=== PATIENT | female | born 1970 | race Caucasian/White ===

== ENCOUNTER 2025-09-14 17:01 | Inpatient (IN) | payer OTHER ==
[~2025-09-14] VITALS: Ht 165.1 cm; Wt 61.4 kg
[2025-09-14 17:59] LABS: PLATELET COUNT (AUTO) 473 K/uL (150-450); RED BLOOD CELL COUNT(AUTO) 4.53 MIL/uL (4.00-5.20); RED CELL DISTRIBUTION WIDTH 12.7 % (11.5-14.5); WHITE BLOOD COUNT (AUTO) 16.5 K/uL (4.5-11.0)
[2025-09-14 18:09] LABS: CALCIUM, TOTAL 11.3 mg/dL (8.8-10.5); CREATININE 2.79 mg/dL (0.60-1.30); GLOMERULAR FILTR. RATE CALC 17.0 mL/min (>60); GLUCOSE,RANDOM 154.0 mg/dL (70-110); SODIUM SERUM 145.0 mmol/L (136-145); UREA NITROGEN, BLOOD 70.0 mg/dL (7-18)
[2025-09-14 18:15] LABS: ASPARTATE AMINOTRANSFERASE 251.0 U/L (15-37); TOTAL PROTEIN, SERUM 9.5 g/dL (6.4-8.2)
[2025-09-14 18:34] LABS: APPEARANCE,URINE CLEAR (CLEAR); GLUCOSE, URINE (UA) NEGATIVE (NEGATIVE); LEUKOCYTE ESTERASE ,URINE NEGATIVE (NEGATIVE); NITRATE,URINE NEGATIVE (NEGATIVE); OCCULT BLOOD,URINE NEGATIVE (NEGATIVE); SPECIFIC GRAVITIY, URINE 1.027 (1.003-1.030)
[2025-09-14] MEDS ORDERED: 0.9% SODIUM CHLORIDE 10 ML SYRINGE IVP PRN (18:45)
[2025-09-14] MEDS: CefTRIAXone 1 GM/DEXTROSE 50 ML IV ONE (19:04)
[2025-09-14] MEDS: SODIUM CHLORIDE 0.9% 2,050 ML IV ONE (19:04)
[2025-09-14 19:06] LABS: CALCIUM, TOTAL 11.0 mg/dL (8.8-10.5); CREATININE 2.63 mg/dL (0.60-1.30); GLOMERULAR FILTR. RATE CALC 19.0 mL/min (>60); GLUCOSE,RANDOM 129.0 mg/dL (70-110); SODIUM SERUM 145.0 mmol/L (136-145); UREA NITROGEN, BLOOD 71.0 mg/dL (7-18)
[2025-09-14 19:15] LABS: LACTIC ACID 1.9 mmol/L (0.4-2.0)
[2025-09-14 19:39] LABS: COVID AG,FIA SOURCE NASAL SWAB
[2025-09-14 20:01] LABS: SARS-COV2 (COVID) ANTIGEN,FIA Negative (Negative)
[2025-09-14 23:00] VITALS: BP 121/82; PULSE 87; RESP 18; TEMP 98.7; O2SAT 100
[2025-09-15 03:42] VITALS: BP 119/71; PULSE 112; RESP 17; TEMP 98.1; O2SAT 94
[2025-09-15] MEDS ORDERED: MIRT-89 PO (03:53)
[2025-09-15] MEDS: SODIUM CHLORIDE 0.9% 1,000 ML IV SCH (04:12)
[2025-09-15] MEDS ORDERED: ERGO500054 PO (04:16)
[2025-09-15] MEDS ORDERED: AMLO-257 PO (04:16)
[2025-09-15] MEDS ORDERED: SERT-162 PO (04:16)
[2025-09-15 06:16] LABS: PLATELET COUNT (AUTO) 288 K/uL (150-450); RED BLOOD CELL COUNT(AUTO) 3.30 MIL/uL (4.00-5.20); RED CELL DISTRIBUTION WIDTH 12.5 % (11.5-14.5); WHITE BLOOD COUNT (AUTO) 9.8 K/uL (4.5-11.0)
[2025-09-15 06:50] LABS: CALCIUM, TOTAL 9.0 mg/dL (8.8-10.5); CREATININE 1.84 mg/dL (0.60-1.30); GLOMERULAR FILTR. RATE CALC 28.0 mL/min (>60); GLUCOSE,RANDOM 102.0 mg/dL (70-110); SODIUM SERUM 147.0 mmol/L (136-145); UREA NITROGEN, BLOOD 59.0 mg/dL (7-18)
[2025-09-15 07:55] VITALS: BP 107/70; PULSE 93; RESP 18; TEMP 98.1; O2SAT 97
[2025-09-15] MEDS: HEPARIN SODIUM,PORCINE 5,000 UNITS/ML VIAL SQ SCH (09:00)
[2025-09-15 11:11] VITALS: BP 108/77; PULSE 86; RESP 18; TEMP 98.4; O2SAT 97
[2025-09-15] MEDS: POTASSIUM CHLORIDE 20 MEQ ER TABLET PO ONE (12:00)
[2025-09-15] MEDS: DEXTROSE 5%-WATER 1,000 ML IV SCH (14:42)
[2025-09-15 15:07] VITALS: BP 132/90; PULSE 113; RESP 19; TEMP 98.1; O2SAT 95
[2025-09-15 15:19] LABS: CREATININE,URINE RANDOM 88.1 mg/dL (30.0-125.0)
[2025-09-15 15:32] VITALS: PULSE 120
[2025-09-15] MEDS: POTASSIUM CHL 10 MEQ/WATER 50 ML IV SCH (17:17)
[2025-09-15 20:35] VITALS: BP 143/98; PULSE 122; RESP 18; TEMP 98.1; O2SAT 95
[2025-09-15] MEDS: MIRTAZAPINE 15 MG TABLET PO SCH (21:00)
[2025-09-15] MEDS: CefTRIAXone 1 GM/DEXTROSE 50 ML IV SCH (21:35)
[2025-09-15] MEDS: LORazepam 2 MG/ML VIAL IVP ONE (21:36)
[2025-09-16] VITALS (9 sets, daily range): BP systolic 118–141; BP diastolic 74–97; PULSE 74–142; RESP 18–22; TEMP 97.9–98.4; O2SAT 97–98
[2025-09-16 06:13] LABS: PLATELET COUNT (AUTO) 240 K/uL (150-450); RED BLOOD CELL COUNT(AUTO) 3.23 MIL/uL (4.00-5.20); RED CELL DISTRIBUTION WIDTH 12.3 % (11.5-14.5); WHITE BLOOD COUNT (AUTO) 6.7 K/uL (4.5-11.0)
[2025-09-16 06:52] LABS: CALCIUM, TOTAL 9.4 mg/dL (8.8-10.5); CREATININE 1.28 mg/dL (0.60-1.30); GLOMERULAR FILTR. RATE CALC 43.0 mL/min (>60); GLUCOSE,RANDOM 101.0 mg/dL (70-110); SODIUM SERUM 141.0 mmol/L (136-145); UREA NITROGEN, BLOOD 27.0 mg/dL (7-18)
[2025-09-16] MEDS ORDERED: SODIUM CHLORIDE 0.9% 100 ML ONE (11:14)
[2025-09-16] MEDS: POTASSIUM CHL 10 MEQ/WATER 50 ML IV PRN (11:20)
[2025-09-16] MEDS: DIAZEPAM 5 MG/ML 2 ML SYRINGE IVP ONE (11:24)
[2025-09-16] MEDS: LORazepam 2 MG/ML VIAL IVP PRN (16:38)
[2025-09-16] MEDS: ZIPRASIDONE MESYLATE 20 MG/VIAL IM ONE (20:33)
[2025-09-17 04:11] VITALS: BP 114/82; PULSE 88; RESP 19; TEMP 98.4; O2SAT 98
[2025-09-17 06:01] LABS: PLATELET COUNT (AUTO) 237 K/uL (150-450); RED BLOOD CELL COUNT(AUTO) 3.56 MIL/uL (4.00-5.20); RED CELL DISTRIBUTION WIDTH 12.4 % (11.5-14.5); WHITE BLOOD COUNT (AUTO) 6.9 K/uL (4.5-11.0)
[2025-09-17 06:10] LABS: CALCIUM, TOTAL 9.7 mg/dL (8.8-10.5); CREATININE 1.12 mg/dL (0.60-1.30); GLOMERULAR FILTR. RATE CALC 50.0 mL/min (>60); GLUCOSE,RANDOM 102.0 mg/dL (70-110); SODIUM SERUM 140.0 mmol/L (136-145); UREA NITROGEN, BLOOD 14.0 mg/dL (7-18)
[2025-09-17 08:00] VITALS: BP 109/62; PULSE 60; RESP 18; TEMP 98.4; O2SAT 99
[2025-09-17] MEDS: POTASSIUM CHLORIDE 20 MEQ ER TABLET PO PRN (11:15)
[2025-09-17 11:52] VITALS: BP 111/66; PULSE 74; RESP 16; TEMP 98.1; O2SAT 98
[2025-09-17 15:42] VITALS: BP 120/95; PULSE 116; RESP 16; TEMP 97.7; O2SAT 97
[2025-09-17 20:22] VITALS: BP 154/95; PULSE 131; RESP 17; TEMP 98.6; O2SAT 96
[2025-09-17 22:57] VITALS: BP 143/95; PULSE 118; RESP 18; TEMP 97.5; O2SAT 95
[2025-09-18] VITALS (7 sets, daily range): BP systolic 135–148; BP diastolic 90–100; PULSE 103–112; RESP 16–18; TEMP 97.5–99.7; O2SAT 95–98
[2025-09-18 09:08] LABS: PLATELET COUNT (AUTO) 230 K/uL (150-450); RED BLOOD CELL COUNT(AUTO) 3.77 MIL/uL (4.00-5.20); RED CELL DISTRIBUTION WIDTH 12.3 % (11.5-14.5); WHITE BLOOD COUNT (AUTO) 7.6 K/uL (4.5-11.0)
[2025-09-18 09:26] LABS: CALCIUM, TOTAL 9.5 mg/dL (8.8-10.5); CREATININE 1.09 mg/dL (0.60-1.30); GLOMERULAR FILTR. RATE CALC 52.0 mL/min (>60); GLUCOSE,RANDOM 129.0 mg/dL (70-110); SODIUM SERUM 138.0 mmol/L (136-145); UREA NITROGEN, BLOOD 10.0 mg/dL (7-18)
[2025-09-18] MEDS ORDERED: IOHEXOL 350 MG/ML 100 ML VIAL ONE (18:26)
[2025-09-18] MEDS: CefTRIAXone 1 GM/DEXTROSE 50 ML IV SCH (22:14)
[2025-09-19 03:04] VITALS: BP 118/84; PULSE 92; RESP 18; TEMP 99; O2SAT 97
[2025-09-19] MEDS: ACETAMINOPHEN 325 MG TABLET PO PRN (03:33)
[2025-09-19 08:21] VITALS: BP 122/88; PULSE 101; RESP 18; TEMP 98.9; O2SAT 98
[2025-09-19] MEDS ORDERED: SODIUM CHLORIDE 0.9% 100 ML ONE (10:33)
[2025-09-19] MEDS ORDERED: 0.9% SODIUM CHLORIDE 10 ML SYRINGE IVP ONE (10:33)
[2025-09-19] MEDS ORDERED: IOHEXOL 350 MG/ML 100 ML VIAL ONE (10:33)
[2025-09-19] MEDS: *CLINICAL-TOTAL PARENTERAL NUTRITION DOSING CLINICAL ONE (11:47)
[2025-09-19] MEDS ORDERED: HEPARIN SODIUM,PORCINE 5,000 UNITS/ML VIAL IVP PRN ×2 (12:00)
[2025-09-19 12:26] LABS: PLATELET COUNT (AUTO) 194 K/uL (150-450); RED BLOOD CELL COUNT(AUTO) 3.64 MIL/uL (4.00-5.20); RED CELL DISTRIBUTION WIDTH 12.3 % (11.5-14.5); WHITE BLOOD COUNT (AUTO) 7.8 K/uL (4.5-11.0)
[2025-09-19] MEDS: HEPARIN SODIUM 25000 UNITS/D5W 250 ML IV PRN (12:29)
[2025-09-19] MEDS ORDERED: SODIUM CHLORIDE 0.9% 500 ML IV ONE (12:30)
[2025-09-19 16:23] VITALS: BP 138/82; PULSE 98; RESP 18; TEMP 98.8; O2SAT 99
[2025-09-19 19:50] VITALS: BP 110/72; PULSE 84; RESP 18; TEMP 98.6; O2SAT 97
[2025-09-19] MEDS: MIRTAZAPINE 15 MG TABLET PO SCH (20:00)
[2025-09-19] MEDS ORDERED: DEXTROSE 50%-WATER 25 GM/50 ML SYRINGE IVP PRN (22:00)
[2025-09-20] MEDS: INSULIN REGULAR, HUMAN 100 UNITS/ML SQ PRN (01:40)
[2025-09-20 06:13] VITALS: BP 106/67; PULSE 72; RESP 18; TEMP 98.8; O2SAT 97
[2025-09-20 06:44] LABS: PLATELET COUNT (AUTO) 206 K/uL (150-450); RED BLOOD CELL COUNT(AUTO) 3.64 MIL/uL (4.00-5.20); RED CELL DISTRIBUTION WIDTH 12.5 % (11.5-14.5); WHITE BLOOD COUNT (AUTO) 6.7 K/uL (4.5-11.0)
[2025-09-20 07:00] LABS: ASPARTATE AMINOTRANSFERASE 25.0 U/L (15-37); CALCIUM, TOTAL 9.7 mg/dL (8.8-10.5); CREATININE 1.4 mg/dL (0.60-1.30); GLOMERULAR FILTR. RATE CALC 39.0 mL/min (>60); GLUCOSE,RANDOM 106.0 mg/dL (70-110); PHOSPHORUS 4.3 mg/dL (2.5-4.9); SODIUM SERUM 142.0 mmol/L (136-145); TOTAL PROTEIN, SERUM 6.9 g/dL (6.4-8.2); UREA NITROGEN, BLOOD 19.0 mg/dL (7-18)
[2025-09-20 08:51] VITALS: BP 100/65; PULSE 77; RESP 18; TEMP 97.3; O2SAT 95
[2025-09-20] MEDS: SODIUM CHLORIDE 0.9% 500 ML IV ONE (09:25)
[2025-09-20 11:46] LABS: GLUCOSE,POINT OF CARE 116 MG/DL (70-110)
[2025-09-20 11:46] LABS: GLUCOSE,POINT OF CARE 91 MG/DL (70-110)
[2025-09-20 11:46] LABS: GLUCOSE,POINT OF CARE 135 MG/DL (70-110)
[2025-09-20 12:01] LABS: GLUCOMETER DEV NAME(LOC) 6N.2C; GLUCOSE,POINT OF CARE 101 MG/DL (70-110)
[2025-09-20 15:20] VITALS: BP 103/62; PULSE 77; RESP 18; TEMP 97.9; O2SAT 97
[2025-09-20 17:15] LABS: GLUCOMETER DEV NAME(LOC) 6N.2C; GLUCOSE,POINT OF CARE 119 MG/DL (70-110)
[2025-09-20] MEDS: APIXABAN 5 MG TABLET PO SCH (20:18)
[2025-09-20 20:44] VITALS: BP 138/90; PULSE 87; RESP 17; TEMP 98.4; O2SAT 97
[2025-09-20 20:55] LABS: GLUCOMETER DEV NAME(LOC) 6N.2C; GLUCOSE,POINT OF CARE 114 MG/DL (70-110)
[2025-09-21 01:16] LABS: GLUCOMETER DEV NAME(LOC) 6N.2C; GLUCOSE,POINT OF CARE 119 MG/DL (70-110)
[2025-09-21 05:11] LABS: GLUCOMETER DEV NAME(LOC) 6N.2C; GLUCOSE,POINT OF CARE 130 MG/DL (70-110)
[2025-09-21 05:26] VITALS: BP 122/79; PULSE 94; RESP 18; TEMP 98.1; O2SAT 97
[2025-09-21 06:08] LABS: CALCIUM, TOTAL 10.0 mg/dL (8.8-10.5); CREATININE 1.22 mg/dL (0.60-1.30); GLOMERULAR FILTR. RATE CALC 45.0 mL/min (>60); GLUCOSE,RANDOM 119.0 mg/dL (70-110); SODIUM SERUM 142.0 mmol/L (136-145); UREA NITROGEN, BLOOD 28.0 mg/dL (7-18)
[2025-09-21 06:14] LABS: CHOL/HDL RATIO 3.4 (3.9-5.7); LDL CHOL (CALC.) 68.0 mg/dL (0-130); PHOSPHORUS 3.2 mg/dL (2.5-4.9)
[2025-09-21 08:52] VITALS: BP 134/83; PULSE 95; RESP 18; TEMP 97.5; O2SAT 98
[2025-09-21 10:41] LABS: GLUCOMETER DEV NAME(LOC) 6N.2C; GLUCOSE,POINT OF CARE 138 MG/DL (70-110)
[2025-09-21 11:45] LABS: GLUCOMETER DEV NAME(LOC) 6N.2C; GLUCOSE,POINT OF CARE 125 MG/DL (70-110)
[2025-09-21 12:00] VITALS: BP 94/68; PULSE 88; RESP 16; O2SAT 99
[2025-09-21 16:17] VITALS: BP 122/80; PULSE 89; RESP 18; TEMP 97.9; O2SAT 98
[2025-09-21 17:26] LABS: GLUCOSE,POINT OF CARE 118 MG/DL (70-110)
[2025-09-21 20:06] VITALS: BP 108/77; PULSE 89; RESP 18; TEMP 98.2; O2SAT 96
[2025-09-22 00:55] LABS: GLUCOMETER DEV NAME(LOC) 6N.2C; GLUCOSE,POINT OF CARE 125 MG/DL (70-110)
[2025-09-22 04:21] VITALS: BP 111/76; PULSE 83; RESP 18; TEMP 97.9; O2SAT 97
[2025-09-22 06:57] LABS: CALCIUM, TOTAL 9.7 mg/dL (8.8-10.5); CREATININE 1.25 mg/dL (0.60-1.30); GLOMERULAR FILTR. RATE CALC 44.0 mL/min (>60); GLUCOSE,RANDOM 123.0 mg/dL (70-110); SODIUM SERUM 140.0 mmol/L (136-145); UREA NITROGEN, BLOOD 34.0 mg/dL (7-18)
[2025-09-22 08:12] LABS: PHOSPHORUS 3.5 mg/dL (2.5-4.9)
[2025-09-22 08:25] VITALS: BP 113/78; PULSE 82; RESP 18; TEMP 97.9; O2SAT 98
[2025-09-22 11:15] LABS: GLUCOMETER DEV NAME(LOC) 6N.2C; GLUCOSE,POINT OF CARE 130 MG/DL (70-110)
[2025-09-22 11:45] VITALS: BP 116/70; RESP 16; O2SAT 99
[2025-09-22 11:50] LABS: GLUCOMETER DEV NAME(LOC) 6N.2C; GLUCOSE,POINT OF CARE 135 MG/DL (70-110)
[2025-09-22 15:26] VITALS: BP 133/83; PULSE 89; RESP 18; TEMP 98.1; O2SAT 99
[2025-09-22 17:25] LABS: GLUCOMETER DEV NAME(LOC) 6N.2C; GLUCOSE,POINT OF CARE 110 MG/DL (70-110)
[2025-09-22 19:50] VITALS: BP 106/69; PULSE 81; RESP 18; TEMP 97.9; O2SAT 97
[2025-09-22 20:31] VITALS: BP 93/67; PULSE 82; RESP 17; TEMP 98.4; O2SAT 100
[2025-09-22] MEDS: TPN IV SCH (22:14)
[2025-09-22] MEDS: SODIUM CHLORIDE IV SCH (22:14)
[2025-09-22] MEDS: [UNRECOGNIZED DRUG - OTHER] IV SCH (22:14)
[2025-09-22] MEDS: SODIUM PHOS M BASIC D BASIC IV SCH (22:14)
[2025-09-23 05:03] VITALS: BP 107/71; PULSE 77; RESP 18; TEMP 97.7; O2SAT 99
[2025-09-23 06:09] LABS: CALCIUM, TOTAL 10.1 mg/dL (8.8-10.5); CREATININE 1.28 mg/dL (0.60-1.30); GLOMERULAR FILTR. RATE CALC 43.0 mL/min (>60); GLUCOSE,RANDOM 117.0 mg/dL (70-110); SODIUM SERUM 139.0 mmol/L (136-145); UREA NITROGEN, BLOOD 40.0 mg/dL (7-18)
[2025-09-23 06:28] LABS: PHOSPHORUS 4.1 mg/dL (2.5-4.9)
[2025-09-23 08:00] VITALS: BP 104/74; PULSE 81; RESP 20; TEMP 97.5; O2SAT 98
[2025-09-23] MEDS: FAT EMULSION 20% 100 ML IV SCH (08:38)
[2025-09-23 15:51] LABS: GLUCOSE,POINT OF CARE 121 MG/DL (70-110)
[2025-09-23 15:51] LABS: GLUCOSE,POINT OF CARE 148 MG/DL (70-110)
[2025-09-23 15:51] LABS: GLUCOMETER DEV NAME(LOC) 6N.2C; GLUCOSE,POINT OF CARE 133 MG/DL (70-110)
[2025-09-23 16:00] VITALS: BP 116/71; PULSE 85; RESP 19; TEMP 98.2; O2SAT 99
[2025-09-23 20:00] VITALS: BP 121/82; PULSE 110; RESP 18; TEMP 97.9; O2SAT 97
[2025-09-23 21:00] VITALS: PULSE 90
[2025-09-23 21:36] LABS: GLUCOSE,POINT OF CARE 103 MG/DL (70-110)
[2025-09-23] MEDS: SODIUM CHLORIDE IV SCH (23:19)
[2025-09-23] MEDS: [UNRECOGNIZED DRUG - OTHER] IV SCH (23:19)
[2025-09-23] MEDS: SODIUM PHOS M BASIC D BASIC IV SCH (23:19)
[2025-09-23] MEDS: TPN IV SCH (23:19)
[2025-09-24 04:00] VITALS: BP 107/74; PULSE 111; RESP 18; TEMP 98.2; O2SAT 98
[2025-09-24 07:25] VITALS: BP 112/69; PULSE 97; RESP 20; TEMP 98.1; O2SAT 97
[2025-09-24 14:41] LABS: GLUCOSE,POINT OF CARE 137 MG/DL (70-110)
[2025-09-24 15:33] VITALS: BP 120/80; PULSE 101; RESP 20; TEMP 98.2; O2SAT 98
[2025-09-24 18:11] LABS: GLUCOMETER DEV NAME(LOC) 6N.2C; GLUCOSE,POINT OF CARE 128 MG/DL (70-110)
[2025-09-24] MEDS: DEXTROSE 10%-WATER 1,000 ML IV SCH (19:02)
[2025-09-24] MEDS: SODIUM PHOS M BASIC D BASIC IV SCH (22:19)
[2025-09-24] MEDS: [UNRECOGNIZED DRUG - OTHER] IV SCH (22:19)
[2025-09-24] MEDS: TPN IV SCH (22:19)
[2025-09-24] MEDS: SODIUM CHLORIDE IV SCH (22:19)
[2025-09-24 22:20] VITALS: BP 96/65; PULSE 101; RESP 20; TEMP 99; O2SAT 98
[2025-09-24 22:20] LABS: PLATELET COUNT (AUTO) 163 K/uL (150-450); RED BLOOD CELL COUNT(AUTO) 3.52 MIL/uL (4.00-5.20); RED CELL DISTRIBUTION WIDTH 13.0 % (11.5-14.5); WHITE BLOOD COUNT (AUTO) 10.7 K/uL (4.5-11.0)
[2025-09-24 22:30] LABS: CALCIUM, TOTAL 9.7 mg/dL (8.8-10.5); CREATININE 1.37 mg/dL (0.60-1.30); GLOMERULAR FILTR. RATE CALC 40.0 mL/min (>60); GLUCOSE,RANDOM 114.0 mg/dL (70-110); SODIUM SERUM 139.0 mmol/L (136-145); UREA NITROGEN, BLOOD 30.0 mg/dL (7-18)
[2025-09-24 22:32] LABS: PHOSPHORUS 3.0 mg/dL (2.5-4.9)
[2025-09-24 22:40] LABS: BAND NEUTROPHILS % (MANUAL) 10 % (0-5); LYMPHOCYTES % (MANUAL) 8 % (22-44); MONOCYTES % (MANUAL) 9 % (2-9); SEGMENTED NEUTROPHILS % 73 % (40-70)
[2025-09-25 04:29] VITALS: BP 100/61; PULSE 85; RESP 19; TEMP 97.9; O2SAT 97
[2025-09-25 07:00] LABS: GLUCOSE,POINT OF CARE 118 MG/DL (70-110)
[2025-09-25 08:27] VITALS: BP 100/58; PULSE 92; RESP 20; TEMP 98.1; O2SAT 98
[2025-09-25 12:15] LABS: GLUCOSE,POINT OF CARE 150 MG/DL (70-110)
[2025-09-25 15:05] LABS: CALCIUM, TOTAL 9.6 mg/dL (8.8-10.5); CREATININE 1.26 mg/dL (0.60-1.30); GLOMERULAR FILTR. RATE CALC 44.0 mL/min (>60); GLUCOSE,RANDOM 117.0 mg/dL (70-110); SODIUM SERUM 138.0 mmol/L (136-145); UREA NITROGEN, BLOOD 33.0 mg/dL (7-18)
[2025-09-25 15:09] LABS: PHOSPHORUS 3.3 mg/dL (2.5-4.9)
[2025-09-25 15:17] VITALS: BP 114/79; PULSE 103; RESP 20; TEMP 98.2; O2SAT 98
[2025-09-25 20:43] VITALS: BP 128/87; PULSE 103; RESP 19; TEMP 98.1; O2SAT 99
[2025-09-25] MEDS: TPN SOLUTION 1 EA, SODIUM CHLORIDE 70 MEQ, SODIUM PHOS,M-BASIC-D-BASIC 30 MEQ, POTASSIU... IV SCH (22:09)
[2025-09-26 07:00] LABS: GLUCOMETER DEV NAME(LOC) 6N.2C; GLUCOSE,POINT OF CARE 134 MG/DL (70-110)
[2025-09-26 07:00] LABS: GLUCOMETER DEV NAME(LOC) 6N.2C; GLUCOSE,POINT OF CARE 127 MG/DL (70-110)
[2025-09-26 07:30] LABS: CALCIUM, TOTAL 9.4 mg/dL (8.8-10.5); CREATININE 1.23 mg/dL (0.60-1.30); GLOMERULAR FILTR. RATE CALC 45.0 mL/min (>60); GLUCOSE,RANDOM 126.0 mg/dL (70-110); SODIUM SERUM 140.0 mmol/L (136-145); UREA NITROGEN, BLOOD 37.0 mg/dL (7-18)
[2025-09-26 07:33] LABS: PHOSPHORUS 4.2 mg/dL (2.5-4.9)
[2025-09-26 08:12] VITALS: BP 107/78; PULSE 100; RESP 18; TEMP 97.9; O2SAT 99
[2025-09-26 12:01] LABS: GLUCOMETER DEV NAME(LOC) 6N.2C; GLUCOSE,POINT OF CARE 120 MG/DL (70-110)
[2025-09-26 12:12] VITALS: BP 101/62; PULSE 80; RESP 18; TEMP 98.1; O2SAT 98
[2025-09-26 16:00] VITALS: BP 101/62; PULSE 79; RESP 18; TEMP 98.1; O2SAT 98
[2025-09-26] MEDS: LORazepam 2 MG/ML VIAL IVP PRN (18:14)
[2025-09-26 20:00] VITALS: BP 104/73; PULSE 88; RESP 18; TEMP 98.1; O2SAT 100
[2025-09-26 21:30] LABS: GLUCOMETER DEV NAME(LOC) 6N.2C; GLUCOSE,POINT OF CARE 109 MG/DL (70-110)
[2025-09-27 05:30] VITALS: BP 116/71; PULSE 85; RESP 18; TEMP 98.1; O2SAT 98
[2025-09-27 07:00] LABS: GLUCOSE,POINT OF CARE 115 MG/DL (70-110)
[2025-09-27 07:29] VITALS: BP 93/60; PULSE 78; RESP 20; TEMP 98.6; O2SAT 99
[2025-09-27 15:46] VITALS: BP 97/52; PULSE 94; RESP 20; TEMP 97.9; O2SAT 98
[2025-09-27 19:30] VITALS: BP 117/65; PULSE 93; RESP 18; TEMP 98.6; O2SAT 98
[2025-09-27 19:36] LABS: GLUCOSE,POINT OF CARE 121 MG/DL (70-110)
[2025-09-27 19:36] LABS: GLUCOMETER DEV NAME(LOC) 6N.2C; GLUCOSE,POINT OF CARE 157 MG/DL (70-110)
[2025-09-27] MEDS: MEGESTROL ACETATE 40 MG TABLET PO SCH (22:09)
[2025-09-27] MEDS: APIXABAN 5 MG TABLET PO SCH (22:10)
[2025-09-28 05:45] VITALS: BP 121/79; PULSE 95; RESP 18; TEMP 97.9; O2SAT 96
[2025-09-28 06:11] LABS: GLUCOSE,POINT OF CARE 102 MG/DL (70-110)
[2025-09-28 07:41] VITALS: BP 103/74; PULSE 86; RESP 18; TEMP 97.3; O2SAT 96
[2025-09-28 07:50] LABS: PLATELET COUNT (AUTO) 184 K/uL (150-450); RED BLOOD CELL COUNT(AUTO) 3.25 MIL/uL (4.00-5.20); RED CELL DISTRIBUTION WIDTH 13.0 % (11.5-14.5); WHITE BLOOD COUNT (AUTO) 8.2 K/uL (4.5-11.0)
[2025-09-28 08:07] LABS: CALCIUM, TOTAL 9.3 mg/dL (8.8-10.5); CREATININE 1.1 mg/dL (0.60-1.30); GLOMERULAR FILTR. RATE CALC 51.0 mL/min (>60); GLUCOSE,RANDOM 126.0 mg/dL (70-110); SODIUM SERUM 143.0 mmol/L (136-145); UREA NITROGEN, BLOOD 32.0 mg/dL (7-18)
[2025-09-28 08:14] LABS: PHOSPHORUS 3.2 mg/dL (2.5-4.9)
[2025-09-28 15:19] VITALS: BP 115/62; PULSE 97; RESP 18; TEMP 98.6; O2SAT 97
[2025-09-28 20:00] VITALS: BP 120/70; PULSE 117; RESP 20; TEMP 97.7; O2SAT 98
[2025-09-28 20:15] LABS: GLUCOSE,POINT OF CARE 123 MG/DL (70-110)
[2025-09-28 21:11] LABS: GLUCOMETER DEV NAME(LOC) 6N.2C; GLUCOSE,POINT OF CARE 93 MG/DL (70-110)
[2025-09-28 21:11] LABS: GLUCOMETER DEV NAME(LOC) 6N.2C; GLUCOSE,POINT OF CARE 139 MG/DL (70-110)
[2025-09-28 21:15] LABS: GLUCOMETER DEV NAME(LOC) 6N.2C; GLUCOSE,POINT OF CARE 119 MG/DL (70-110)
[2025-09-29 04:00] VITALS: BP 111/79; PULSE 105; RESP 20; TEMP 97.9; O2SAT 96
[2025-09-29 06:45] LABS: GLUCOMETER DEV NAME(LOC) 6N.2C; GLUCOSE,POINT OF CARE 121 MG/DL (70-110)
[2025-09-29 06:45] LABS: GLUCOMETER DEV NAME(LOC) 6N.2C; GLUCOSE,POINT OF CARE 119 MG/DL (70-110)
[2025-09-29 07:19] VITALS: BP 105/65; PULSE 77; RESP 18; TEMP 98.2; O2SAT 96
[2025-09-29 08:19] LABS: CALCIUM, TOTAL 9.8 mg/dL (8.8-10.5); CREATININE 1.05 mg/dL (0.60-1.30); GLOMERULAR FILTR. RATE CALC 54.0 mL/min (>60); GLUCOSE,RANDOM 97.0 mg/dL (70-110); SODIUM SERUM 141.0 mmol/L (136-145); UREA NITROGEN, BLOOD 31.0 mg/dL (7-18)
[2025-09-29 08:32] LABS: PHOSPHORUS 3.6 mg/dL (2.5-4.9)
[2025-09-29 19:31] VITALS: BP 107/67; PULSE 108; RESP 20; TEMP 97.7; O2SAT 96
[2025-09-29] MEDS: ETHYL ALCOHOL 62% ANTISEPTIC NASAL SANITIZER 0.6 ML AMPUL NASAL SCH (20:11)
[2025-09-29] MEDS: CHLORHEXIDINE GLUCONATE 2% TOWELETTE [2'S/6'S] TP SCH (22:10)
[2025-09-30 00:36] LABS: GLUCOSE,POINT OF CARE 140 MG/DL (70-110)
[2025-09-30 00:36] LABS: GLUCOSE,POINT OF CARE 86 MG/DL (70-110)
[2025-09-30 00:36] LABS: GLUCOSE,POINT OF CARE 100 MG/DL (70-110)
[2025-09-30 04:00] VITALS: BP 103/67; PULSE 101; RESP 18; TEMP 97.9; O2SAT 98
[2025-09-30 08:27] VITALS: BP 112/69; PULSE 104; RESP 19; TEMP 97.8; O2SAT 99
[2025-09-30 08:30] LABS: GLUCOSE,POINT OF CARE 94 MG/DL (70-110)
[2025-09-30 12:25] LABS: GLUCOMETER DEV NAME(LOC) 6N.2C; GLUCOSE,POINT OF CARE 148 MG/DL (70-110)
[2025-09-30 13:19] VITALS: BP 104/63; PULSE 98; RESP 19; TEMP 97.3; O2SAT 98
[2025-09-30 17:31] LABS: GLUCOSE,POINT OF CARE 104 MG/DL (70-110)
[2025-09-30 19:28] VITALS: BP 103/60; PULSE 80; RESP 18; TEMP 98.2; O2SAT 97
[2025-09-30 20:46] LABS: GLUCOSE,POINT OF CARE 133 MG/DL (70-110)
[2025-10-01 04:30] VITALS: BP 100/64; PULSE 98; RESP 18; TEMP 98.2; O2SAT 98
[2025-10-01 07:44] VITALS: BP 95/62; PULSE 107; RESP 18; TEMP 98.2; O2SAT 100
[2025-10-01 07:45] LABS: GLUCOSE,POINT OF CARE 137 MG/DL (70-110)
[2025-10-01 12:20] LABS: GLUCOSE,POINT OF CARE 136 MG/DL (70-110)
[2025-10-01 16:17] VITALS: BP 104/64; PULSE 91; RESP 18; TEMP 97.9; O2SAT 100
[2025-10-01 17:41] LABS: GLUCOMETER DEV NAME(LOC) 6N.2C; GLUCOSE,POINT OF CARE 90 MG/DL (70-110)
[2025-10-01 20:53] VITALS: BP 96/54; PULSE 96; RESP 17; TEMP 98.6; O2SAT 99
[2025-10-02 04:47] VITALS: BP 117/87; PULSE 76; RESP 18; TEMP 97.7; O2SAT 94
[2025-10-02 06:46] LABS: GLUCOMETER DEV NAME(LOC) 6N.2C; GLUCOSE,POINT OF CARE 140 MG/DL (70-110)
[2025-10-02 07:37] VITALS: BP 91/61; PULSE 112; RESP 18; TEMP 98; O2SAT 97
[2025-10-02 09:00] VITALS: BP 107/65; RESP 18; O2SAT 97
[2025-10-02 12:00] VITALS: BP 100/65; RESP 18; O2SAT 97
[2025-10-02 12:41] LABS: GLUCOSE,POINT OF CARE 130 MG/DL (70-110)
[2025-10-02 15:12] VITALS: BP 111/62; PULSE 121; RESP 18; O2SAT 97
[2025-10-02 19:48] VITALS: BP 105/61; PULSE 90; RESP 18; TEMP 98.1; O2SAT 97
[2025-10-03 01:35] LABS: GLUCOMETER DEV NAME(LOC) 6N.2C; GLUCOSE,POINT OF CARE 107 MG/DL (70-110)
[2025-10-03 01:35] LABS: GLUCOMETER DEV NAME(LOC) 6N.2C; GLUCOSE,POINT OF CARE 163 MG/DL (70-110)
[2025-10-03 04:53] VITALS: BP 146/89; PULSE 92; RESP 18; TEMP 97.9; O2SAT 97
[2025-10-03 07:45] LABS: GLUCOMETER DEV NAME(LOC) 6N.2C; GLUCOSE,POINT OF CARE 113 MG/DL (70-110)
[2025-10-03 07:48] VITALS: BP 147/88; PULSE 131; RESP 20; TEMP 98.2; O2SAT 97
[2025-10-03 12:00] VITALS: BP 93/53; RESP 18; O2SAT 97
[2025-10-03 13:51] LABS: GLUCOMETER DEV NAME(LOC) 6N.2C; GLUCOSE,POINT OF CARE 113 MG/DL (70-110)
[2025-10-03 15:38] VITALS: BP 99/64; PULSE 120; RESP 20; TEMP 97.5; O2SAT 96
[2025-10-03] MEDS: SENNOSIDES 8.8 MG/5 ML SYRUP UDCUP PO ONE (17:41)
[2025-10-03 20:01] VITALS: BP 106/55; PULSE 114; RESP 17; TEMP 99; O2SAT 95
[2025-10-03 23:01] LABS: GLUCOMETER DEV NAME(LOC) 6N.2C; GLUCOSE,POINT OF CARE 142 MG/DL (70-110)
[2025-10-04 04:54] VITALS: BP 97/69; PULSE 108; RESP 18; TEMP 97.7; O2SAT 97
[2025-10-04 06:11] LABS: GLUCOSE,POINT OF CARE 104 MG/DL (70-110)
[2025-10-04 07:55] VITALS: BP 90/55; PULSE 104; RESP 18; TEMP 97.9; O2SAT 99
[2025-10-04] MEDS: POLYETHYLENE GLYCOL 3350 17 GM PACKET PO SCH (09:13)
[2025-10-04 09:39] VITALS: BP 95/49; PULSE 97; RESP 18; O2SAT 99
[2025-10-04 12:46] VITALS: BP 95/69; PULSE 100
[2025-10-04 13:25] LABS: GLUCOSE,POINT OF CARE 109 MG/DL (70-110)
[2025-10-04] MEDS: RINGERS SOLUTION,LACTATED 1,000 ML IV ONE (15:51)
[2025-10-04 17:36] VITALS: BP 92/62; PULSE 102
[2025-10-04 19:39] VITALS: BP 101/63; PULSE 110; RESP 18; TEMP 98.4; O2SAT 97
[2025-10-04 22:06] LABS: GLUCOSE,POINT OF CARE 198 MG/DL (70-110)
[2025-10-04 22:06] LABS: GLUCOSE,POINT OF CARE 215 MG/DL (70-110)
[2025-10-05 05:35] VITALS: BP 90/55; PULSE 82; RESP 18; TEMP 99; O2SAT 97
[2025-10-05 07:11] LABS: GLUCOSE,POINT OF CARE 109 MG/DL (70-110)
[2025-10-05 07:35] LABS: PLATELET COUNT (AUTO) 214 K/uL (150-450); RED BLOOD CELL COUNT(AUTO) 2.74 MIL/uL (4.00-5.20); RED CELL DISTRIBUTION WIDTH 13.7 % (11.5-14.5); WHITE BLOOD COUNT (AUTO) 10.8 K/uL (4.5-11.0)
[2025-10-05 07:46] LABS: CALCIUM, TOTAL 9.3 mg/dL (8.8-10.5); CREATININE 1.54 mg/dL (0.60-1.30); GLOMERULAR FILTR. RATE CALC 35.0 mL/min (>60); GLUCOSE,RANDOM 100.0 mg/dL (70-110); SODIUM SERUM 141.0 mmol/L (136-145); UREA NITROGEN, BLOOD 33.0 mg/dL (7-18)
[2025-10-05 08:32] VITALS: BP 96/51; PULSE 108; RESP 20; TEMP 99.3; O2SAT 97
[2025-10-05 14:21] LABS: GLUCOSE,POINT OF CARE 99 MG/DL (70-110)
[2025-10-05 15:34] VITALS: BP 109/74; PULSE 103; RESP 20; TEMP 98.6; O2SAT 96
[2025-10-05 19:45] VITALS: BP 124/75; PULSE 105; RESP 18; TEMP 98.2; O2SAT 97
[2025-10-05 19:50] LABS: GLUCOMETER DEV NAME(LOC) 6N.2C; GLUCOSE,POINT OF CARE 119 MG/DL (70-110)
[2025-10-06 00:26] LABS: GLUCOMETER DEV NAME(LOC) 6N.2C; GLUCOSE,POINT OF CARE 95 MG/DL (70-110)
[2025-10-06 04:30] VITALS: BP 108/72; PULSE 104; RESP 18; TEMP 98.1; O2SAT 96
[2025-10-06] MEDS: DOCUSATE SODIUM 100 MG/10 ML LIQUID UDCUP PO PRN (05:59)
[2025-10-06 06:55] LABS: GLUCOMETER DEV NAME(LOC) 6N.2C; GLUCOSE,POINT OF CARE 111 MG/DL (70-110)
[2025-10-06 08:00] VITALS: BP 115/75; PULSE 107; RESP 19; TEMP 98.1; O2SAT 97
[2025-10-06] MEDS ORDERED: DEXTROSE 5%-0.45% SODIUM CHL 1,000 ML IV SCH (10:00)
[2025-10-06 10:59] LABS: COVID AG,FIA SOURCE NASAL SWAB
[2025-10-06 11:26] LABS: SARS-COV2 (COVID) ANTIGEN,FIA Negative (Negative)
[2025-10-06] MEDS ORDERED: APIX5TAB PO (12:25)
[2025-10-06] MEDS ORDERED: LORA0.5T20 PO (12:26)
[2025-10-06] MEDS ORDERED: MEGE40TA33 PO (12:27)
[2025-10-06] MEDS ORDERED: OLAN5TAB52 PO (12:28)
[2025-10-06] MEDS ORDERED: ACET-2247 PO (12:28)
[2025-10-06] MEDS ORDERED: DOCU50LI40 PO (12:29)
[2025-10-06] MEDS ORDERED: HALO5TAB23 PO (12:30)
[2025-10-06] MEDS ORDERED: POLY17PO47 PO (12:31)
[2025-10-06] MEDS ORDERED: CARV-165 PO (12:31)
[2025-10-06 17:25] LABS: GLUCOSE,POINT OF CARE 117 MG/DL (70-110)
== END 2025-10-06 14:00 | DRG 469 ==
LOC: EMS 17:01 → EDH 22:25 → 5N 22:45 → 6S 09-18 16:49
PROVIDERS: ADMIT Internal Medicine; ATTEND Internal Medicine
PROC: 05HC33Z Insertion of Infusion Device into Left Basilic Vein, Percutaneous Approach (ICD-10-PCS; principal; 2025-09-19)
PROC: B54NZZA Ultrasonography of Left Upper Extremity Veins, Guidance (ICD-10-PCS; 2025-09-19)
DX: N17.0 Acute kidney failure with tubular necrosis (principal); I26.99 Other pulmonary embolism without acute cor pulmonale; F06.1 Catatonic disorder due to known physiological condition; R62.7 Adult failure to thrive; E43 Unspecified severe protein-calorie malnutrition; E86.0 Dehydration; Z79.01 Long term (current) use of anticoagulants; I10 Essential (primary) hypertension; J44.9 Chronic obstructive pulmonary disease, unspecified; F33.3 Major depressive disorder, recurrent, severe with psychotic symptoms; F41.9 Anxiety disorder, unspecified; N20.0 Calculus of kidney; F94.0 Selective mutism; Z88.0 Allergy status to penicillin; Z91.199 Patient's noncompliance with other medical treatment and regimen due to unspecified reason; Z79.899 Other long term (current) drug therapy; Z68.22 Body mass index [BMI] 22.0-22.9, adult
CPT/HCPCS: 36245; 36569; 70450; 71045; 71250; 71275; 74176; 76770; 76937; 80048; 80053; 80061; 81003; 82570; 82962; 83036; 83605; 83735; 84100; 84132; 84134; 84145; 84300; 84443; 85025; 85379; 85610; 85730; 87040; 87081; 93005; 97110; 97162; 97167; 97530; 97535; 99291; J0610; J0696; J1630; J1644; J2060; J3475; J3480; J3486; J3490; J7030; J7040; J7050; J7060; J7070; J7120; J7131; 36415-L1; 36415-TC; X7700